=== PATIENT | male | born 1950 | race Caucasian/White ===

== ENCOUNTER 2017-02-13 11:54 | Day surgery (SDC) | payer OTHER ==
[2017-02-13] MEDS ORDERED: ceFAZolin 1 GM/10 ML VIAL ONE (12:36)
[2017-02-13] MEDS ORDERED: BUPIVACAINE HCL/PF 0.5% 30 ML VIAL ONE (12:37)
[2017-02-13] MEDS ORDERED: LIDOCAINE HCL 1% 20 ML VIAL ONE (12:37)
[2017-02-13] MEDS: ceFAZolin 1 GM in NORMAL SALINE MINI-BAG+ 100 ML IV SCH (13:11)
[2017-02-13 14:00] VITALS: TEMP 98.2
[2017-02-13 14:10] VITALS: BP 161/92; PULSE 66; RESP 14; O2SAT 96
--- NOTE | 2017-02-13 15:44 | OPERATIVE REPORT ---
DATE OF SURGERY: 02/13/17 SURGEON: Gilbert Russell DPM ANESTHESIA: Local. PREOPERATIVE DIAGNOSIS: Bone spur, fifth digit, left foot. POSTOPERATIVE DIAGNOSIS: Bone spur, fifth digit, left foot. PROCEDURE PERFORMED: Excision of bone spur, fifth digit, left foot. HEMOSTASIS: Pneumatic ankle tourniquet. ESTIMATED BLOOD LOSS: Minimal. PROCEDURE IN DETAIL: The patient was escorted into the operating room and placed on the operating table in a supine position. A pneumatic ankle tourniquet was then placed about the patients left ankle. The fifth digit of the left foot was then anesthetized utilizing 10 mL of 1:1 mixture of 1% lidocaine plain and 0.5% Marcaine plain. The left foot was then scrubbed, prepped and draped in the usual aseptic manner. An Esmarch bandage was utilized to exsanguinate the patients left foot and the pneumatic ankle tourniquet was inflated. Attention was then directed to the distal medial aspect of the left foot where a 1 cm incision was made. The incision was deepened through the subcutaneous tissues with care being taken to retract all vital neural and vascular structures. All bleeders were cauterized as necessary. At this time dissection was continued through the subcutaneous tissues to the level of the distal phalanx of the left fifth digit. The rongeur was used to resect the bone spur. All rough edges were then smoothed with a bone rasp. A concave medial cortex of the distal phalanx, fifth digit, left foot was created. The wound was then flushed with copious amounts of sterile normal saline. The periosteal and capsular structures were then reapproximated and coapted utilizing 3-0 Vicryl suture. The skin was then reapproximated and coapted utilizing 3-0 nylon suture with simple interrupted suture technique. Upon completion of the procedure the wound was dressed with Betadine soaked Adaptic and covered with a sterile compressive dressing consisting of 4x4s and Coban. The patient tolerated the procedure and anesthesia well. He was discharged to home on the following written and oral postoperative instructions. 1. Keep dressings dry and intact. 2. Avoid excessive ambulation. 3. Ice and elevate left foot when at rest. 4. Wear surgical shoe at all times when ambulating. 5. Contact Dr. Russell for all postoperative followup care, and if any problems arise. 6. Prescriptions were written for [place] for pain. MTDD
--- NOTE | 2017-02-24 14:22 | PREOPERATIVE H&P ---
History of Present Illness (Gilbert Russell DPM; 02/13/2017 2:43 PM) Pre Op: Exostectomy 5th digit Left Foot. Also Akash will be fitted for orthotics. Patient will receive pre/post op instructions, sign a consent form and discuss the surgical procedure with Dr. Russell to answer any questions. Prescription pain medication will be determined. Allergies (Oma Eid; 01/30/2017 11:36 AM) No Known Drug Allergies Family History (Oma Eid; 01/30/2017 11:36 AM) Brother 2 Brother 52, healthy, other than a melanoma on his back recently. Brother 1 60 with hypothyroidism. Taking antidepressants. Father Father age 87, with a history of lung cancer (nonsmoker), history of SVT. Also with history of hypertriglyceridemia, had stent placed about 4 years ago. Anxiety and depression, severe, Mother Mother alive at 84 with history of unknown cancer in the head and neck. Also with arthritis and memory loss. She has had recent surgery for an abdominal hernia and has had major bowel issues over the past year, and dementia , which has advanced steadily. 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 Exercise None, physical labor on house. Marital status . 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 Tobacco use Never smoker. Alcohol use Occasional alcohol use. Alcohol on Friday and Friday, a few beers with neighbors. Number of Children Had 2 children with first , son and daughter in [place]. well 2016 Two stepchildren, one committed suicide at age 19. No Drug Use Medication History (Oma Eid; 01/30/2017 11:36 AM) FLUoxetine HCl (40MG Capsule, 1 Oral daily, Taken starting 11/27/2016) Active. EpiPen 2-Alverto (0.3MG/0.3ML Device, 1 Injection use as needed, Taken starting 10/2012) Active. Pravastatin Sodium (40MG Tablet, 1 (one) Oral daily, Taken starting 12/30/2016 ) Active. Aspirin (325MG Tablet, 1/2 Oral daily) Active. Medications Reconciled Vitals Pain Level: 2/10 Resp.: 16 (Unlabored) Physical Exam (Gilbert Russell DPM; 01/30/2017 1:17 PM) Musculoskeletal Lower Extremity Ankle/Foot: Foot - Evaluation of related systems reveals - well developed, well nourished and in no acute distress, alert and oriented x3 and neurovascularly intact bilaterally. Examination of the right foot reveals - no tenderness to palpation, no pain, no swelling, edema or erythema of surrounding tissue, normal foot and ankle movements and range of motion, no crepitus and no known fractures or deformities. Examination of the left foot reveals - no swelling, edema or erythema of surrounding tissue, normal foot and ankle movements and range of motion, no crepitus and no instability. Inspection and Palpation - Sensation is - normal, (R) and normal, (L). Pulses - 2+, (R) and 2+, (L). Examination reveals - Note: HK lesion at medial aspect of 5th dig L. (+) bone spur underlies this area. Orthotics fit pt's feet and shoes well. He stands with the bisections of his heels perpendicular to the ground in RCSP while atop the orthotics. In gait, pt strikes laterally and is maintained about the [employer] throughout the gait cycle. Assessment & Plan (Gilbert Russell DPM; 01/30/2017 1:23 PM) Exostosis (726.91) Impression: Presurgical appt for exostectomy 5th dig L. Reviewed pre and post op instruction sheets. Rx Bent 5/325 for pain. POFU scheduled Plantar fasciitis, bilateral (M72.2) Impression: Dispensed orthotics. For now, pt will continue with tape, ice, nsaids prn. Signed by Gilbert Russell DPM (01/30/2017 1:23 PM) There are no interval changes. Signed Gilbert Russell DPM. 02/13/2017. [place]
== END 2017-02-13 14:36 | disposition home or self-care (01) ==
LOC: SDS 11:54
PROVIDERS: ATTEND Podiatrist Foot & Ankle Surgery
DX: M89.8X7 Other specified disorders of bone, ankle and foot (principal); M72.2 Plantar fascial fibromatosis; F32.89 Other specified depressive episodes; K21.9 Gastro-esophageal reflux disease without esophagitis; E78.5 Hyperlipidemia, unspecified; R41.3 Other amnesia; D70.9 Neutropenia, unspecified; Z79.899 Other long term (current) drug therapy
CPT/HCPCS: J0690